=== PATIENT | female | born 1980 ===

== ENCOUNTER 2017-08-26 14:55 | Emergency (ER) | payer MEDICAID, OTHER ==
[2017-08-26 17:08] VITALS: BMI 21.7
[2017-08-27 02:15] VITALS: BP 94/60; PULSE 87; RESP 18; TEMP 98.8
--- NOTE | 2017-08-28 15:24 | OBHP ---
Datetime: 08/26/2017 16:36 IP Adm Impression: , intrauterine IP Admit Plan: Observation/Evaluation; Discharge home Admit Comment, IP Provider: 37 yo IUP 24.6 weeks presents today c/o 3 episodes of diarrhea s socrates this morning, no blood or mucous, also reports having cramping abdominal pain yesterday that res olves spontaneously. Denies lof, vb, +FM. Denies headache, blurred vision, no chest pain or any other pain, palpitations, no recent F/N/V. Patient states that her daughter has diarrhea also since 3-4 da ys ago. PNC: [facility] POb: , NVD x1 2010, FT Pgyn: none PMH: denies. FMH: denies. PSH: none Meds: pnv NKDA. SH: - tobacco, etoh, drugs. VS: wnl FHR: 160/mod kala/cat 1/no decel. [place]: quiet A/P: 37 yo IUP 24.6 weeks with diarrhea. IV fluids Observation Case discussed with Dr Montes. Fadia PGY 1 OB attending addendum: Patient seen and examined by me agree with the above assessment and plan. Of note patient denied c ontractions cramping or vaginal bleeding or spontaneous rupture of membranes Patient advised to follo w-up with OB doctor this week Pelvic Type - PN: Adequate Extremities - PN: Normal Abdomen - PN: Normal Back - PN: Normal Breast - PN: Normal Lungs - PN: Normal Heart - PN: Normal Thyroid - PN: Normal Neurologic - PN: Normal HEENT - PN: Normal General - PN: Normal FHR - Baseline A Provider: 160 Contraction Comments Provider: quiet EGA AdmitDate IP: 24.6 Vital Signs Provider: Reviewed; Within Normal Limits IP Chief Complaint: Maternal discomfort NICHD Variability Prov Fetus A: Moderate 6-25bpm NICHD Accel Fetus A IP Provider: 15X15 FHR Category Provider Fetus A: Category I NICHD Decel Fetus A IP Provider: None Genitourinary Exam: Normal DTRs - PN: Normal
== END 2017-08-26 17:35 | disposition home or self-care (01) ==
LOC: H.EROB2 14:55
DX: O26.92 Pregnancy related conditions, unspecified, second trimester (principal); Z3A.24 24 weeks gestation of pregnancy; R19.7 Diarrhea, unspecified; R10.2 Pelvic and perineal pain

== ENCOUNTER 2017-10-14 17:46 | Emergency (ER) | payer MEDICAID ==
[2017-10-14 18:15] VITALS: BMI 25.7
[2017-10-14 19:23] LABS: SQUAMOUS EPITHIAL 1 /hpf (0-5); URINE BACTERIA OCC (<OCC); URINE BILIRUBIN NEGATIVE (NEGATIVE); URINE BLOOD NEGATIVE (NEGATIVE); URINE CLARITY CLEAR (Clear); URINE COLOR STRAW (YELLOW); URINE GLUCOSE (UA) NEG (Normal); URINE LEUKOCYTE ESTERASE NEG Leu/uL (Negative); URINE PROTEIN NEGATIVE (NEGATIVE); URINE UROBILINOGEN 0.2-1.0 mg/dL (0.2-1.0)
--- NOTE | 2017-10-14 20:00 | OBHP ---
Datetime: 10/14/2017 18:22 IP Adm Impression: , intrauterine IP Chief Complaint Other: abdominal pain IP Admit Plan: Observation/Evaluation; Discharge home Admit Comment, IP Provider: CC: "abdominal pain" HPI: 37 YO @ 31.6wks IUP (ANA 12/10/17 by u/s) presents to [facility] for abdominal pain. Pt states that the pain started suddenly around 3PM while pt was watching TV. No trauma. Pain is described as c onstant in nature, but states that the severity has decreased since onset. Mild right now. No changes in diet, no n/v/d/c, denies dysuria, hematuria. Endorsing increase frequency in urination then previ ously. Good FM, no ctx, no VB and no LOF. PMD: [place] ObHx: ; full term NVD 2010 Financial Assistant: Denies hx of STIs PMH: denies SurgH: denies FH: hx of HLD SH: denies ETOH, Smoking and illict drug use Allergies: NKDA Meds: PNV PE: GEN: NAD, looks nervous Cardio: S1S2 no M/G/R Resp: clear breath sounds b/l Abdomen: gravid, NT, BS+ Back: Neg CVA b/l Ext: no edema noted Neuro: AAO x 3 Vag: closed/thick/high FM: 150, catagory I A/P: 37 YO @ 31.6wks IUP (ANA 12/10/17 by u/s) with abdominal pain, now resolving. VS stable, afebrile. Strip is reactive, no ctx seen. -continue monitor -UA -will assess and reevaluate Pt seen and examined by Dr. Christina Dudley, PGY I Pt reevaluated. UA result unremarkable. Pt reports that she is feeling well. Pain has resolved. Plan: D/C Home. F/U With OB Clinic within 1 week. Labor instructions given. Pelvic Type - PN: Adequate Extremities - PN: Normal Abdomen - PN: Normal Back - PN: Normal Breast - PN: Not Done Lungs - PN: Normal Heart - PN: Normal Thyroid - PN: Not Done Neurologic - PN: Normal HEENT - PN: Normal General - PN: Normal FHR - Baseline A Provider: 150 EGA AdmitDate IP: 31.6 Vital Signs Provider: Reviewed; Within Normal Limits IP Chief Complaint: Other NICHD Variability Prov Fetus A: Moderate 6-25bpm NICHD Accel Fetus A IP Provider: 15X15 FHR Category Provider Fetus A: Category I Dilatation, Provider: closed Effacement, Provider: thick Station, Provider: high Genitourinary Exam: Normal DTRs - PN: Not Done
[2017-10-15 00:25] VITALS: BP 107/67; PULSE 96; RESP 20; TEMP 98.2; O2SAT 99
== END 2017-10-14 19:50 | disposition home or self-care (01) ==
LOC: H.EROB2 17:46
DX: O26.93 Pregnancy related conditions, unspecified, third trimester (principal); R10.2 Pelvic and perineal pain; Z3A.31 31 weeks gestation of pregnancy

== ENCOUNTER 2017-12-05 18:24 | Inpatient (IN) | payer MEDICAID, SELFPAY ==
[2017-12-05 19:37] VITALS: BMI 26.6
[2017-12-05] MEDS: Lactated Ringer's 1,000 ML IV SCH ×2 (20:00→21:00)
[2017-12-05] MEDS ORDERED: Lactated Ringer's 1,000 ML IV SCH (20:00)
[2017-12-05 20:16] LABS: BASO % 0.5 % (0.0-2.0); EOS # 0.1 K/uL (0.0-0.7); EOS % 1.1 % (0.0-4.0); HEMOGLOBIN 12.5 g/dL (12.0-16.0); LYMPH # 1.3 K/uL (1.0-4.3); LYMPH % 14.6 % (20.0-40.0); MEAN CELL VOLUME 96.3 fl (81.0-99.0); MEAN CORPUSCULAR HGB CONC 34.2 g/dL (33.0-37.0); MEAN PLATELET VOLUME 8.8 fl (7.2-11.7); MONO # 0.6 K/uL (0.0-0.8); MONO % 7.1 % (0.0-10.0); NEUT % 76.7 % (50.0-75.0); RBC 3.78 Mil/uL (3.80-5.20); RED CELL DISTRIBUTION WIDTH 13.4 % (11.5-14.5); WHITE BLOOD COUNT 9.2 K/uL (4.8-10.8)
[2017-12-05] MEDS ORDERED: Bupivacaine HCl 0.25% PF (10 ml) Inj ONE (21:09)
[2017-12-05] MEDS ORDERED: Fentanyl/Bupivacaine HCl 250 ML EPI ONE (21:10)
[2017-12-06] MEDS ORDERED: Oxycodone/Acetaminophen 5/325 mg Tab PO PRN ×3 (03:07→07:33)
[2017-12-06] MEDS ORDERED: Benzocaine/Menthol SPRAY TOP PRN ×2 (03:07→05:36)
--- NOTE | 2017-12-06 05:23 | OBDS ---
DELIVERY PERSONNEL Delivery Doctor: Lisseth Moraes MD Scrub Nurse: Emma Biswas Ladle Pourer: Lee Pendleton RN Anesthesiologist: Yanna Goldsmith MD Modeling Analyst: Samson Goldsmith MD (Annotations: Data stored by [facility] on behalf of user) Resident: MATERNAL INFORMATION Delivery Anesthesia: Epidural Medications in Delivery: PITOCIN 30 UNITS IN 500 ML LR Estimated Blood Loss (ml): 150 Placenta Cultured: No Maternal Complications: None Provider Comments: of live female w/ one loose nuchal cord, over an intact perineum at 02:55. N ose and mouth suctioned, body delivered without difficulty. 9/9. Spontaneous Delivery of placen ta with 3 vessel cord. Cord clamped and cut. Fundus firm, minimal bleeding. Cervix and Vagina were ex amined for lacerations and none were noted. Pt tolerated procedure well. EBL 150ml. Suyapa, PGY1 Dr Moraes in attendance LABOR SUMMARY EDC: 12/08/2017 00:00 No. Babies in Womb: 1 Attempted: No Labor Anesthesia: Epidural LABOR INFORMATION Reason for Induction: Not Applicable Onset of Labor: 12/05/2017 15:00 Complete Dilatation: 12/06/2017 01:15 Oxytocin: N/A Group B Beta Strep: Negative Antibiotics # of Doses: 0 Steroids Given: None Reason Steroids Not Administered: Not Applicable MEMBRANES Membranes Rupture Method: Spontaneous Rupture of Membranes: 12/06/2017 01:15 Length of Rupture (hrs): 1.67 Amniotic Fluid Color: Light Meconium Amniotic Fluid Amount: Moderate Amniotic Fluid Odor: Normal STAGES OF LABOR Stage 1 hrs: 10 Stage 1 min: 15 Stage 2 hrs: 1 Stage 2 min: 40 Stage 3 hrs: 0 Stage 3 min: 5 Total Time in Labor hrs: 12 Total Time in Labor min: 0 VAGINAL DELIVERY Episiotomy: None Laceration Extension: N/A Laceration Type: None Initial Vag Sponge Count: 5 Final Vag Sponge Count: 5 Initial Vag Sharps Count: 0 Final Vag Sharps Count: 0 Sponge Count Correct: Yes Sharps Count Correct: N/A BABY A INFORMATION Infant Delivery Date/Time: 12/06/2017 02:55 Method of Delivery: Vaginal Born in Route : No : N/A Forceps: N/A Vacuum Extraction: N/A Shoulder Dystocia : No SHOULDER DYSTOCIA BABY A Delivery Date/Time: 12/06/2017 02:55 PRESENTATION/POSITION BABY A Presentation: Cephalic Cephalic Presentation: Vertex Breech Presentation: N/A PLACENTA INFORMATION BABY A Placenta Delivery Time : 12/06/2017 03:00 Placenta Method of Delivery: Spontaneous Placenta Status: Delivered SCORES BABY A Heart Rate 1 min: >100 bpm Resp Effort 1 min: Good Cry Reflex Irritability 1 min: Cough or Sneeze or Pulls Away Muscle Tone 1 min: Active Motion Color 1 min: Body [place], Extremities Blue Resuscitation Effort 1 min: Tactile Stimulation SCORE 1 MIN: 9 Heart Rate 5 min: >100 bpm Resp Effort 5 min: Good Cry Reflex Irritability 5 min: Cough or Sneeze or Pulls Away Muscle Tone 5 min: Active Motion Color 5 min: Body [place], Extremities Blue Resuscitation Effort 5 min: N/A SCORE 5 MIN: 9 INFORMATION BABY A Gestational Age at Delivery: 39.0 Gestational Status: Term Infant Outcome : Liveborn Condition : Stable Infant Sex: Female IDENTIFICATION/MEDS BABY A ID Band Number: [id number] ID Band Location: Left Leg; Left Arm WEIGHT/LENGTH BABY A Birthweight (gms): 3275 Weight (lb): 7 Weight (oz): 3 CORD INFORMATION BABY A No. Cord Vessels: 1 Nuchal Cord : Around Neck x1, Loose Infant Suction: None ASSESSMENT BABY A Infant Complications: Meconium Physical Findings at Delivery: Within Normal Limits Infant Respirations: Appears Normal Propellant Assembler/ALS Called : No Infant Care By: RYNE PARK Transferred To: Remains with Mother
[2017-12-06] MEDS ORDERED: Lactated Ringer's 1,000 ML IV SCH (05:36)
[2017-12-06] MEDS ORDERED: Fentanyl/Bupivacaine HCl 250 ML EPI ONE (05:36)
[2017-12-06] MEDS ORDERED: Oxytocin 30 units/LR 500ML 30 UNITS/500 ML BAG IV SCH (05:36)
--- NOTE | 2017-12-06 09:04 | RAD ---
HISTORY: COMPARISON: No prior. FINDINGS: LUNGS: No active pulmonary disease. PLEURA: No significant pleural effusion identified, no pneumothorax apparent. CARDIOVASCULAR: Normal. OSSEOUS STRUCTURES: No significant abnormalities. VISUALIZED UPPER ABDOMEN: Normal. OTHER FINDINGS: None. IMPRESSION: No active disease.
[2017-12-06] MEDS ORDERED: Lansinoh for Breast Feeding Mothers TP ONE (20:38)
[2017-12-06] MEDS ORDERED: Lansinoh for Breast Feeding Mothers TP PRN (22:43)
[2017-12-07 06:42] LABS: HEMOGLOBIN 10.7 g/dL (12.0-16.0); MEAN CORPUSCULAR HEMOGLOBIN 33.2 pg (27.0-31.0); MEAN CORPUSCULAR HGB CONC 34.6 g/dL (33.0-37.0); RBC 3.21 Mil/uL (3.80-5.20); RED CELL DISTRIBUTION WIDTH 13.8 % (11.5-14.5); WHITE BLOOD COUNT 8.1 K/uL (4.8-10.8)
--- NOTE | 2017-12-07 10:29 | OBPPN ---
Datetime: 12/07/2017 06:04 PP Pain Prov: Within normal limits PP Nausea Prov: Denies PP Flatus Prov: Yes PP BM Prov: No PP Impression Prov: Normal progression PP Plan Prov: Continue present management PP Progress Note Prov: PPD 1 S: 37 y/o female s/p on 12/06/17 evaluated on PPD1. Pt was seen and examined at beds [facility] this AM. No overnight events. Pt reports mild abdominal pain, but well controlled with pain meds. Ambulating. Breast feeding (with formula supplementation) without difficulty. Mild nipple soreness, improved with Lanolin. Lochia is similar to menses volume. No BM yet but passing gas per rectum. Den ies fever/chills, diarrhea, nausea/vomiting, chest pain, dyspnea, and dizziness. O: VSS stable GEN: NAD Cardio: S1S2, no murmurs Lungs: clear breath sounds b/l, no wheezing Abdomen: BS+, appropriate tenderness to palpation. Uterus is firm and at the level of the umbilic us. EXT: No edema, calves nontender NEURO/PSYCH: AAOx3, no grossly focal deficits, preserved affect and mood. H/H (post ): pending Assessment/Plan: 37 y/o female s/p on 12/06/17, doing well on PPD1. Pt remains afebri le, tolerating pain with medication. Tolerating diet. Anticipating d/c on 12/08. Continue with curren t management. Cxray completed, reported normal. Encourage and ambulating Ibuprofen 600 q6 for pain Lanolin prn Senakot 17.2 mg PO HS Cliff Hercules, PGY1 OB Hospitalist note: Pt seen on rounds this morning. Agree with PGY1 note [facility] IP PP Procedures: None Vital Signs Provider PP: Reviewed; Within Normal Limits
--- NOTE | 2017-12-08 07:02 | OBPPN ---
Datetime: 12/08/2017 06:45 PP Pain Prov: Within normal limits PP Nausea Prov: Denies PP Flatus Prov: Yes PP BM Prov: Yes PP Impression Prov: Normal progression PP Plan Prov: Continue present management; Discharge PP Progress Note Prov: PPD 2 S: 37 y/o female s/p on 12/06/17 evaluated on PPD2. Pt was seen and examined at beds [facility] this AM. No overnight events. Pt reports mild abdominal pain, but well controlled with pain meds. Ambulating. Breast feeding (with formula supplementation) without difficulty. Lochia is similar to m enses volume. 2 BM last night. Denies fever/chills, diarrhea, nausea/vomiting, chest pain, dyspnea, and dizziness. O: VSS stable overnight GEN: NAD Cardio: S1S2, no murmurs Lungs: clear breath sounds b/l, no wheezing Abdomen: BS+, appropriate tenderness to palpation. Uterus is firm and at the level of the umbilic us. EXT: No edema, calves nontender NEURO/PSYCH: AAOx3, no grossly focal deficits, preserved affect and mood. H/H (post ): 10.7/30.8 Assessment/Plan: 37 y/o female s/p on 12/06/17, doing well on PPD2. Pt remains afebri le, tolerating pain with medication. Tolerating diet. Anticipating d/c today. Continue with current m anagement.. Encourage and ambulating Ibuprofen 600 q6 for pain Start Fe Sulfate 325 BID on discharge Lanolin prn Sen[place]ot 17.2 mg PO HS Cliff Hercules PGY1 OB Hospitalist note : Pt was seen on rounds and agree with PGY1 note - D/C home [facility] Vital Signs Provider PP: Reviewed; Within Normal Limits
--- NOTE | 2017-12-08 07:03 | OBDCSUM ---
Datetime: 12/08/2017 06:48 Discharged to, Provider: Home Follow up at, Provider: Disch Instr Activity: Normal activity; May be up to bathroom; May be up for meals; May Shower Disch Instr Diet: Regular Discharge Instructions, Provider: Routine instructions given Discharge Diagnosis, Provider: Term Delivered Follow up in weeks, Provider: 4-6 Disch Activity Restrictions: No lifting; No sexual activity; Nothing in vagina - [place], tampon s, douche Discharge Comment, Provider: Diagnosis: 37 y/o female s/p on 12/06/17 : Female, 3275g, 9/9 Post Summary: No complications during post period. H/H- 10.7/36.4. Cxray completed p ost discharge and found to be wnl. Discharge Instructions: 1. Encourage 2. PNV 1 tab po daily 3. Ibuprofen 600mg 1 tab prn for mild-mod pain 4. ER precations: If excessive bleeding or fever without relief from medication, go to ED 5. F/U in 4-6 weeks Contraception after Delivery: Undecided
[2017-12-08 16:52] VITALS: BP 123/78; PULSE 93; RESP 18; TEMP 97.4; O2SAT 98
== END 2017-12-08 12:20 | disposition home or self-care (01) | DRG 373 ==
LOC: H.EROB2 18:24 → H.L&D 19:51 → H.OB/GYN 12-06 05:05
PROVIDERS: ADMIT Obstetrics & Gynecology Gynecology; ATTEND Obstetrics & Gynecology Gynecology
PROC: 4A1HXCZ Monitoring of Products of Conception, Cardiac Rate, External Approach (ICD-10-PCS; 2017-12-05)
PROC: 10E0XZZ Delivery of Products of Conception, External Approach (ICD-10-PCS; principal; 2017-12-06)
DX: O69.81X0 Labor and delivery complicated by cord around neck, without compression, not applicable or unspecified (principal); O77.0 Labor and delivery complicated by meconium in amniotic fluid; Z37.0 Single live birth; Z3A.39 39 weeks gestation of pregnancy